=== PATIENT | male | born 1965 | race Caucasian/White ===

== ENCOUNTER 2020-07-07 19:55 | Emergency (ER) | payer OTHER ==
[2020-07-07 21:30] LABS: BILIRUBIN NEGATIVE (NEGATIVE); BLOOD NEGATIVE Ery/uL (NEGATIVE); CLARITY CLEAR (CLEAR); COLOR YELLOW (YELLOW); GLUCOSE (U) NORMAL (NORMAL); LEUKOCYTES TRACE Leu/uL (NEGATIVE); NITRITE NEGATIVE (NEGATIVE); PROTEIN TRACE (LOW) mg/dL (NEGATIVE); SPECIFIC GRAVITY >=1.030 (1.001-1.030); UROBILINOGEN 0.2 mg/dL (0.2-1.0); pH 5.5 (5.0-9.0)
[2020-07-07 21:39] LABS: BACTERIA TRACE
[2020-07-07] MEDS ORDERED: NORCO 5-325 TA1 EACH PO (21:56)
[2020-07-07] MEDS ORDERED: BACTRIM DS TAB1 EACH PO (21:56)
[2020-07-07] MEDS ORDERED: ZOFRAN4 M1 PO (21:56)
== END 2020-07-07 22:14 | disposition home or self-care (01) ==
LOC: FER 19:55
PROVIDERS: Emergency Medicine
DX: S22.41XA Multiple fractures of ribs, right side, initial encounter for closed fracture (principal); F17.200 Nicotine dependence, unspecified, uncomplicated; Z88.5 Allergy status to narcotic agent; W11.XXXA Fall on and from ladder, initial encounter
CPT/HCPCS: 71045; 71100; 81001